=== PATIENT | female | born 1995 | race Caucasian/White ===

== ENCOUNTER 2020-07-07 15:07 | Inpatient (IN) | payer OTHER ==
[2020-07-07 15:14] VITALS: BMI 26.6
[2020-07-07] MEDS ORDERED: morphine CARPU-JECT 4 MG/1 ML DISP.SYRIN IM ONE (16:19)
[2020-07-07] MEDS ORDERED: KETOROLAC TROMETHAMINE 60 MG/2 ML VIAL IM ONE (16:19)
[2020-07-07] MEDS ORDERED: morphine SULFATE 4 MG/ML VIAL ONE (16:22)
[2020-07-07] MEDS ORDERED: KETOROLAC TROMETHAMINE 60 MG/2 ML VIAL ONE (16:22)
[2020-07-07] MEDS ORDERED: ACETAMINOPHEN 500 MG TABLET (FP) PO ONE (17:39)
[2020-07-07] MEDS ORDERED: CYCLOBENZAPRINE HCL 10 MG TABLET (FP) PO ONE (17:39)
[2020-07-07] MEDS ORDERED: ACETAMINOPHEN 500 MG TABLET (FP) ONE (17:42)
[2020-07-07] MEDS ORDERED: CYCLOBENZAPRINE HCL 10 MG TABLET (FP) ONE (17:42)
[2020-07-07] MEDS ORDERED: HYDROmorphone HCL CARPU-JECT 2 MG/1 ML DISP.SYRIN IVPB ONE (20:33)
[2020-07-07] MEDS ORDERED: HYDROmorphone HCl 2 MG/ML VIAL ONE (20:36)
[2020-07-07 20:48] LABS: BASO % 0.5 % (0-2.0); HEMOGLOBIN 12.4 GM/dL (10.7-15.3); LYMPH % 25.8 % (8-40); MCH 29.7 pg (25.7-33.7); MCHC 33.6 g/dl (32.0-36.0); MEAN CELL VOLUME 88.4 fl (80-96); MEAN PLT VOLUME 10.4 fl (7.5-11.1); NEUT % 65.7 % (42.8-82.8); PLATELET COUNT 269 K/MM3 (134-434); RBC 4.18 M/mm3 (3.60-5.2); RDW 13.5 % (11.6-15.6); WHITE BLOOD COUNT 10.8 K/mm3 (4.0-10.0)
[2020-07-07 21:05] LABS: POTASSIUM 4.8 mmol/L (3.5-5.1)
[2020-07-07 21:07] LABS: ALBUMIN 3.8 g/dl (3.4-5.0); BLOOD UREA NITROGEN 7.6 mg/dL (7-18)
[2020-07-07 21:08] LABS: PH,URINE 6.5 (5.0-8.0); URINE APPEARANCE CLOUDY; URINE BILIRUBIN NEGATIVE (NEGATIVE); URINE COLOR YELLOW; URINE GLUCOSE (UA) NEGATIVE (NEGATIVE); URINE KETONE 3+ (NEGATIVE); URINE LEUK ESTERASE NEGATIVE (NEGATIVE); URINE NITRITE NEGATIVE (NEGATIVE); URINE PROTEIN NEGATIVE (NEGATIVE); URINE UROBILINOGEN 0.2 mg/dL (0.2-1.0)
[2020-07-07 21:11] LABS: CREATININE 0.5 mg/dL (0.55-1.3)
[2020-07-07 21:12] LABS: BILIRUBIN,TOTAL 0.3 mg/dL (0.2-1); TOT PROT 7.1 g/dl (6.4-8.2)
[2020-07-08] MEDS ORDERED: morphine SULFATE 4 MG/ML VIAL IVPUSH PRN (01:42)
[2020-07-08] MEDS ORDERED: MORPHINE SULFATE 2 MG/ML VIAL IVPUSH PRN ×2 (01:42→12:50)
[2020-07-08] MEDS ORDERED: CYCLOBENZAPRINE HCL 10 MG TABLET (FP) PO PRN (01:43)
[2020-07-08] MEDS ORDERED: GABAPENTIN 300 MG CAPSULE PO ONE (01:44)
[2020-07-08] MEDS ORDERED: ACETAMINOPHEN 325 MG TABLET (FP) PO PRN (01:45)
[2020-07-08] MEDS ORDERED: MELATONIN 5 MG TABLETS PO ONE (01:45)
[2020-07-08] MEDS ORDERED: KETOROLAC TROMETHAMINE 30 MG/1 ML VIAL IVPUSH PRN (01:45)
[2020-07-08] MEDS ORDERED: GABAPENTIN 100 MG CAPSULE ONE (02:23)
[2020-07-08] MEDS ORDERED: KETOROLAC TROMETHAMINE 30 MG/1 ML VIAL ONE (03:24)
[2020-07-08] MEDS ORDERED: CYCLOBENZAPRINE HCL 10 MG TABLET (FP) ONE (03:24)
[2020-07-08] MEDS ORDERED: KETOROLAC TROMETHAMINE 15 MG/ML VIAL IVPUSH PRN (03:28)
[2020-07-08 07:50] LABS: HEMATOCRIT 37.3 % (32.4-45.2); HEMOGLOBIN 12.6 GM/dL (10.7-15.3); MCHC 33.7 g/dl (32.0-36.0); MEAN CELL VOLUME 88.9 fl (80-96); MEAN PLT VOLUME 10.3 fl (7.5-11.1); PLATELET COUNT 259 K/MM3 (134-434); RDW 13.4 % (11.6-15.6); WHITE BLOOD COUNT 8.6 K/mm3 (4.0-10.0)
[2020-07-08 07:57] LABS: POTASSIUM 3.8 mmol/L (3.5-5.1)
[2020-07-08 08:04] LABS: CALCIUM 8.8 mg/dL (8.5-10.1)
[2020-07-08 08:05] LABS: BLOOD UREA NITROGEN 16.5 mg/dL (7-18)
[2020-07-08 08:08] LABS: CREATININE 0.7 mg/dL (0.55-1.3)
[2020-07-08] MEDS ORDERED: NICOTINE 14 MG/24 HOURS TOPICAL PATCH TD SCH (10:00)
[2020-07-08] MEDS ORDERED: ENOXAPARIN NA (PORCINE) 40 MG/0.4 ML DISP.SYRIN SQ SCH (10:00)
[2020-07-08] MEDS ORDERED: ENOXAPARIN NA (PORCINE) 40 MG/0.4 ML DISP.SYRIN SQ ONE (10:27)
[2020-07-08] MEDS ORDERED: ACETAMINOPHEN 1000 MG/100 ML VIAL (NON FORMULARY) IVPB PRN (12:50)
[2020-07-08] MEDS ORDERED: GABAPENTIN 300 MG CAPSULE PO SCH ×3 (14:00→22:00)
[2020-07-08] MEDS ORDERED: ACETAMINOPHEN INJECTION 100 ML IVPB ONE (17:23)
[2020-07-08 19:03] VITALS: BP 115/81; PULSE 96; TEMP 98
[2020-07-08] MEDS ORDERED: PRAMIPEXOLE DIHYDROCHLORIDE 0.25 MG TABLET PO SCH (20:00)
[2020-07-09] MEDS ORDERED: GABAPENTIN 400 MG CAPSULE PO SCH (04:14)
== END 2020-07-08 20:30 | disposition home or self-care (01) | DRG 552 ==
LOC: JER 15:07 → JERFT 15:07 → JERBED 20:33
PROVIDERS: ADMIT Hospitalist; ATTEND Internal Medicine
DX: M51.17 Intervertebral disc disorders with radiculopathy, lumbosacral region (principal); M54.2 Cervicalgia; N83.209 Unspecified ovarian cyst, unspecified side; G43.909 Migraine, unspecified, not intractable, without status migrainosus; G25.81 Restless legs syndrome
CPT/HCPCS: 36415; 71046-TC-FY; 72125-TC; 72131-TC; 80048; 80053; 81003; 84703; 85025; 85027; 93005; 93010; 99285-25; C9803; J0131; U0003

== ENCOUNTER 2021-04-22 22:20 | Observation (INO) | payer SELFPAY ==
[2021-04-22] MEDS ORDERED: SODIUM CHLORIDE 0.9% 500 ML INFUS.BAG IV ONE (23:09)
[2021-04-22] MEDS ORDERED: FAMOTIDINE 20 MG/50 ML IVPB 20 MG/50 ML MG IVPB ONE (23:09)
[2021-04-22] MEDS ORDERED: ONDANSETRON 4 MG/2 ML VIAL IVPUSH ONE (23:09)
[2021-04-22] MEDS ORDERED: ACETAMINOPHEN 1000 MG/100 ML VIAL IVPB ONE (23:09)
[2021-04-22] MEDS ORDERED: ACETAMINOPHEN INJECTION 100 ML IVPB ONE (23:30)
[2021-04-22] MEDS ORDERED: ONDANSETRON 4 MG/2 ML VIAL ONE (23:30)
[2021-04-22 23:41] LABS: BASO % 0.7 % (0-2.0); EOS % 0.6 % (0-4.5); HEMATOCRIT 42.2 % (32.4-45.2); HEMOGLOBIN 14.2 GM/dL (10.7-15.3); LYMPH % 1.9 % (8-40); MCH 29.7 pg (25.7-33.7); MCHC 33.6 g/dl (32.0-36.0); MEAN CELL VOLUME 88.3 fl (80-96); MEAN PLT VOLUME 9.1 fl (7.5-11.1); MONO % 1.7 % (3.8-10.2); NEUT % 95.1 % (42.8-82.8); PLATELET COUNT 290 10^3/uL (134-434); RBC 4.77 M/mm3 (3.60-5.2); RDW 13.4 % (11.6-15.6); WHITE BLOOD COUNT 16.4 K/mm3 (4.0-10.0)
[2021-04-22] MEDS ORDERED: FAMOTIDINE/PF 20 MG/2 ML VIAL ONE (23:44)
[2021-04-22] MEDS ORDERED: diazePAM CARPU-JECT 10 MG/2 ML DISP.SYRIN IVPUSH ONE (23:54)
[2021-04-22] MEDS ORDERED: KETOROLAC TROMETHAMINE 15 MG/ML VIAL IVPUSH ONE (23:54)
[2021-04-23 00:02] LABS: PH,URINE 5.5 (5.0-8.0); URINE APPEARANCE CLOUDY; URINE BILIRUBIN NEGATIVE (NEGATIVE); URINE COLOR YELLOW; URINE GLUCOSE (UA) NEGATIVE (NEGATIVE); URINE KETONE TRACE (NEGATIVE); URINE LEUK ESTERASE NEGATIVE (NEGATIVE); URINE NITRITE NEGATIVE (NEGATIVE); URINE PROTEIN NEGATIVE (NEGATIVE); URINE UROBILINOGEN 0.2 mg/dL (0.2-1.0)
[2021-04-23 00:09] LABS: ALBUMIN 3.7 g/dl (3.4-5.0); CALCIUM 8.9 mg/dL (8.5-10.1)
[2021-04-23 00:10] LABS: BLOOD UREA NITROGEN 16.6 mg/dL (7-18); MAGNESIUM 1.8 mg/dL (1.8-2.4)
[2021-04-23 00:12] LABS: CREATININE 0.7 mg/dL (0.55-1.3)
[2021-04-23 00:14] LABS: BILIRUBIN,TOTAL 0.6 mg/dL (0.2-1); TOT PROT 7.5 g/dl (6.4-8.2)
[2021-04-23] MEDS ORDERED: KETOROLAC TROMETHAMINE 30 MG/1 ML VIAL ONE ×2 (00:15→06:20)
[2021-04-23] MEDS ORDERED: diazePAM CARPU-JECT 10 MG/2 ML DISP.SYRIN ONE (00:58)
[2021-04-23 01:02] LABS: ANISOCYTOSIS 2+; MACROCYTOSIS 0; PLATELET ESTIMATE NORMAL; TOXIC GRANULATION 2+
[2021-04-23] MEDS ORDERED: DEXTROSE 5%-LACTATED RINGERS 1,000 ML IV SCH (01:45)
[2021-04-23] MEDS ORDERED: oxyCODONE HCL 5 MG TABLET PO ONE ×2 (02:19→02:53)
[2021-04-23] MEDS ORDERED: oxyCODONE HCL 5 MG TABLET ONE ×2 (02:24→02:55)
[2021-04-23] MEDS ORDERED: ACETAMINOPHEN 1000 MG/100 ML VIAL IVPB PRN (05:08)
[2021-04-23] MEDS ORDERED: KETOROLAC TROMETHAMINE 15 MG/ML VIAL IVPUSH PRN (05:09)
[2021-04-23] MEDS ORDERED: SODIUM CHLORIDE 1,000 ML IV SCH (05:15)
[2021-04-23] MEDS ORDERED: ONDANSETRON 4 MG/2 ML VIAL IVPUSH PRN (05:43)
[2021-04-23 07:16] LABS: HEMATOCRIT 37.5 % (32.4-45.2); HEMOGLOBIN 12.9 GM/dL (10.7-15.3); MCH 30.9 pg (25.7-33.7); MCHC 34.3 g/dl (32.0-36.0); PLATELET COUNT 265 10^3/uL (134-434); RBC 4.17 M/mm3 (3.60-5.2); RDW 13.5 % (11.6-15.6); WHITE BLOOD COUNT 10.9 K/mm3 (4.0-10.0)
[2021-04-23 07:30] LABS: BLOOD UREA NITROGEN 16.4 mg/dL (7-18); CALCIUM 8.1 mg/dL (8.5-10.1); MAGNESIUM 1.9 mg/dL (1.8-2.4)
[2021-04-23 07:33] LABS: CREATININE 0.6 mg/dL (0.55-1.3)
[2021-04-23 07:35] LABS: BILIRUBIN,TOTAL 0.3 mg/dL (0.2-1); TOT PROT 6.2 g/dl (6.4-8.2)
[2021-04-23] MEDS ORDERED: LIDOCAINE 5% TOPICAL PATCH ONE (08:41)
[2021-04-23 09:02] LABS: ANISOCYTOSIS 0; HELMET CELLS 0; HOWELL-JOLLY BODIES 0; MACROCYTOSIS 0; OVALOCYTE 0; PLATELET ESTIMATE NORMAL; ROULEAU 0; SICKELED CELLS 0; TARGET CELLS 0; TEAR DROP CELLS 0; TOXIC GRANULATION 0
[2021-04-23] MEDS ORDERED: LIDOCAINE 5% TOPICAL PATCH TP SCH (10:00)
[2021-04-23] MEDS ORDERED: ENOXAPARIN NA (PORCINE) 40 MG/0.4 ML DISP.SYRIN SQ SCH (10:00)
[2021-04-23] MEDS ORDERED: ACETAMINOPHEN INJECTION 100 ML IVPB ONE ×2 (11:01→15:23)
[2021-04-23 14:42] VITALS: BP 109/76; PULSE 78; TEMP 98.4
[2021-04-23] MEDS ORDERED: ACETAMINOPHEN 1000 MG/100 ML VIAL IVPB ONE (15:07)
[2021-04-23] MEDS ORDERED: LIDOCAINE PATCH REMOVAL MC SCH (22:00)
== END 2021-04-23 17:35 | disposition home or self-care (01) ==
LOC: JER 22:20 → JERBED 04-23 04:11 → INTOOBSV 04-23 04:11 → UNDOADMOB 04-23 04:11 → JERBED 04-23 14:29
PROC: 3E033NZ Introduction of Analgesics, Hypnotics, Sedatives into Peripheral Vein, Percutaneous Approach (ICD-10-PCS; principal; 2021-04-23)
PROC: 3E0337Z Introduction of Electrolytic and Water Balance Substance into Peripheral Vein, Percutaneous Approach (ICD-10-PCS; 2021-04-23)
PROC: 3E033GC Introduction of Other Therapeutic Substance into Peripheral Vein, Percutaneous Approach (ICD-10-PCS; 2021-04-23)
PROC: 3E0333Z Introduction of Anti-inflammatory into Peripheral Vein, Percutaneous Approach (ICD-10-PCS; 2021-04-23)
DX: R19.7 Diarrhea, unspecified (principal); M54.59 Other low back pain; M54.30 Sciatica, unspecified side; R11.2 Nausea with vomiting, unspecified; R55 Syncope and collapse; M51.86 Other intervertebral disc disorders, lumbar region; J45.909 Unspecified asthma, uncomplicated; R68.83 Chills (without fever); R63.30 Feeding difficulties, unspecified; F17.210 Nicotine dependence, cigarettes, uncomplicated; Z29.9 Encounter for prophylactic measures, unspecified
CPT/HCPCS: 36415; 72100-TC-FY; 80053; 81003; 83690; 83735; 84100; 84703; 85025; 87077; 87086; 87804; 87807; 93005; 93010; 96361; 96365; 96375; 96376; 99285-25; C9803; G0378; J0131; U0003; U0005

== ENCOUNTER 2021-11-01 15:47 | Emergency (ER) | payer OTHER ==
[2021-11-01 16:01] VITALS: BP 121/65; PULSE 89; TEMP 98.6; BMI 21.6
[2021-11-01] MEDS ORDERED: CYCLOBENZAPRINE HCL 10 MG TABLET (FP) PO ONE (17:25)
[2021-11-01] MEDS ORDERED: LIDOCAINE 5% TOPICAL PATCH TP ONE (17:25)
[2021-11-01] MEDS ORDERED: KETOROLAC TROMETHAMINE 30 MG/1 ML VIAL IM ONE (17:25)
[2021-11-01] MEDS ORDERED: CYCLOBENZAPRINE HCL 10 MG TABLET (FP) ONE (17:39)
[2021-11-01] MEDS ORDERED: LIDOCAINE 5% TOPICAL PATCH ONE (17:39)
[2021-11-01] MEDS ORDERED: KETOROLAC TROMETHAMINE 30 MG/1 ML VIAL ONE (17:39)
[2021-11-02] MEDS ORDERED: LIDOCAINE PATCH REMOVAL MC SCH (06:00)
== END 2021-11-01 19:57 | disposition left against medical advice (07) ==
LOC: JERFT 15:47 → JER 15:47 → JERFT 19:57
PROC: 3E0233Z Introduction of Anti-inflammatory into Muscle, Percutaneous Approach (ICD-10-PCS; principal; 2021-11-01)
DX: M54.41 Lumbago with sciatica, right side (principal); W10.9XXA Fall (on) (from) unspecified stairs and steps, initial encounter
CPT/HCPCS: 96372; 99284-25

== ENCOUNTER 2022-01-04 10:40 | Emergency (ER) | payer OTHER ==
[2022-01-04 10:47] VITALS: RESP 18; TEMP 98.1; BMI 26.6
[2022-01-04] MEDS ORDERED: SODIUM CHLORIDE 1,000 ML IV STA ×2 (11:25→14:16)
[2022-01-04] MEDS ORDERED: ACETAMINOPHEN 1000 MG/100 ML BAG IVPB ONE (11:27)
[2022-01-04] MEDS ORDERED: ONDANSETRON 4 MG/2 ML VIAL IVPUSH ONE (11:29)
[2022-01-04 12:12] LABS: PH,URINE 5.5 (5.0-8.0); URINE APPEARANCE CLOUDY; URINE BILIRUBIN NEGATIVE (NEGATIVE); URINE COLOR YELLOW; URINE GLUCOSE (UA) NEGATIVE (NEGATIVE); URINE KETONE TRACE (NEGATIVE); URINE LEUK ESTERASE NEGATIVE (NEGATIVE); URINE NITRITE NEGATIVE (NEGATIVE); URINE PROTEIN TRACE (NEGATIVE); URINE UROBILINOGEN 0.2 mg/dL (0.2-1.0)
[2022-01-04 12:23] LABS: HCG,QUALITATIVE URINE Negative
[2022-01-04] MEDS ORDERED: ONDANSETRON 4 MG/2 ML VIAL ONE ×2 (12:26→12:32)
[2022-01-04] MEDS ORDERED: ACETAMINOPHEN INJECTION 100 ML IVPB ONE (12:26)
[2022-01-04] MEDS ORDERED: KETOROLAC TROMETHAMINE 30 MG/1 ML VIAL IVPUSH ONE (12:41)
[2022-01-04] MEDS ORDERED: KETOROLAC TROMETHAMINE 30 MG/1 ML VIAL ONE (12:42)
[2022-01-04 13:35] LABS: BASO % 0.7 % (0-2.0); EOS % 2.2 % (0-4.5); HEMATOCRIT 39.3 % (32.4-45.2); HEMOGLOBIN 13.4 GM/dL (10.7-15.3); LYMPH % 26.1 % (8-40); MCH 30.5 pg (25.7-33.7); MEAN CELL VOLUME 89.8 fl (80-96); MEAN PLT VOLUME 8.9 fl (7.5-11.1); PLATELET COUNT 352 10^3/uL (134-434); RBC 4.38 M/mm3 (3.60-5.2); RDW 13.8 % (11.6-15.6); WHITE BLOOD COUNT 9.9 K/mm3 (4.0-10.0)
[2022-01-04 13:56] LABS: CALCIUM 9.3 mg/dL (8.5-10.1)
[2022-01-04 13:57] LABS: BLOOD UREA NITROGEN 10.7 mg/dL (7-18)
[2022-01-04 14:00] LABS: CREATININE 0.7 mg/dL (0.55-1.3)
[2022-01-04 14:01] LABS: BILIRUBIN,TOTAL 0.3 mg/dL (0.2-1); TOT PROT 7.6 g/dl (6.4-8.2)
[2022-01-04] MEDS ORDERED: morphine CARPU-JECT 2 MG/1 ML DISP.SYRIN IVPUSH ONE (14:13)
[2022-01-04 17:56] VITALS: BP 105/58; PULSE 73
== END 2022-01-04 17:45 | disposition home or self-care (01) ==
LOC: JER 10:40
PROC: 3E0333Z Introduction of Anti-inflammatory into Peripheral Vein, Percutaneous Approach (ICD-10-PCS; principal; 2022-01-04)
PROC: 3E0333Z Introduction of Anti-inflammatory into Peripheral Vein, Percutaneous Approach (ICD-10-PCS; 2022-01-04)
PROC: 3E033NZ Introduction of Analgesics, Hypnotics, Sedatives into Peripheral Vein, Percutaneous Approach (ICD-10-PCS; 2022-01-04)
PROC: 3E033GC Introduction of Other Therapeutic Substance into Peripheral Vein, Percutaneous Approach (ICD-10-PCS; 2022-01-04)
PROC: 3E0337Z Introduction of Electrolytic and Water Balance Substance into Peripheral Vein, Percutaneous Approach (ICD-10-PCS; 2022-01-04)
PROC: 3E0333Z Introduction of Anti-inflammatory into Peripheral Vein, Percutaneous Approach (ICD-10-PCS; 2022-01-04)
DX: N83.201 Unspecified ovarian cyst, right side (principal)
CPT/HCPCS: 36415; 74176-TC; 76830-TC; 80053; 81003; 84703; 85025; 87086; 99285-25

== ENCOUNTER 2022-04-29 16:51 | Emergency (ER) | payer OTHER ==
[2022-04-29 16:58] VITALS: BP 115/78; PULSE 116; RESP 18; TEMP 97.6; BMI 26.6
[2022-04-29] MEDS ORDERED: ACETAMINOPHEN 1000 MG/100 ML BAG IVPB ONE ×2 (18:02→22:05)
[2022-04-29] MEDS ORDERED: ONDANSETRON 4 MG/2 ML VIAL IVPUSH ONE (18:02)
[2022-04-29] MEDS ORDERED: SODIUM CHLORIDE 0.9% 500 ML INFUS.BAG IV ONE (18:02)
[2022-04-29] MEDS ORDERED: PANTOPRAZOLE SODIUM 40 MG VIAL IVPUSH ONE (18:03)
[2022-04-29] MEDS ORDERED: ACETAMINOPHEN INJECTION 100 ML IVPB ONE (18:19)
[2022-04-29] MEDS ORDERED: ONDANSETRON 4 MG/2 ML VIAL ONE (18:19)
[2022-04-29] MEDS ORDERED: PANTOPRAZOLE SODIUM 40 MG VIAL ONE (18:20)
[2022-04-29 19:11] LABS: BASO % 0.6 % (0-2.0); EOS % 0.7 % (0-4.5); HEMATOCRIT 41.7 % (32.4-45.2); HEMOGLOBIN 13.6 GM/dL (10.7-15.3); LYMPH % 12.5 % (8-40); MCHC 32.6 g/dl (32.0-36.0); MEAN PLT VOLUME 9.3 fl (7.5-11.1); MONO % 4.5 % (3.8-10.2); NEUT % 81.7 % (42.8-82.8); PLATELET COUNT 407 10^3/uL (134-434); RBC 4.69 M/mm3 (3.60-5.2); RDW 13.8 % (11.6-15.6)
[2022-04-29 19:14] LABS: INR 1.07 (0.83-1.09); PROTHROMBIN TIME (PATIENT) 12.3 SEC (9.7-13.0)
[2022-04-29 19:16] LABS: ACTIVATED PTT 30.4 SECONDS (25.2-36.5)
[2022-04-29] MEDS ORDERED: morphine CARPU-JECT 4 MG/1 ML DISP.SYRIN IVPUSH ONE (20:23)
[2022-04-29 20:26] LABS: ALBUMIN 4.1 g/dl (3.4-5.0); BILIRUBIN,TOTAL 0.2 mg/dL (0.2-1); BLOOD UREA NITROGEN 7.2 mg/dL (7-18); CALCIUM 9.8 mg/dL (8.5-10.1); CREATININE 0.8 mg/dL (0.55-1.3); TOT PROT 8.4 g/dl (6.4-8.2)
[2022-04-29] MEDS ORDERED: morphine SULFATE 4 MG/ML VIAL ONE (20:26)
[2022-04-29 21:36] LABS: EPI CELLS 6 /uL (0-25.1); HYALINE CASTS 0 /uL (0-3.1); PH,URINE 5.5 (5.0-8.0); URINE APPEARANCE CLEAR; URINE BACTERIA 110 /uL (0-1359); URINE BILIRUBIN NEGATIVE (NEGATIVE); URINE COLOR YELLOW; URINE GLUCOSE (UA) NEGATIVE (NEGATIVE); URINE KETONE NEGATIVE (NEGATIVE); URINE LEUK ESTERASE NEGATIVE (NEGATIVE); URINE NITRITE NEGATIVE (NEGATIVE); URINE PROTEIN NEGATIVE (NEGATIVE); URINE RBC 4 /uL (0-23.9); URINE UROBILINOGEN 0.2 mg/dL (0.2-1.0); URINE WBC 5 /uL (0-25.8)
[2022-04-29] MEDS ORDERED: AMOX TR/POT CLAV 875MG/125MG TABLETS (FP) PO ONE (21:56)
[2022-04-29] MEDS ORDERED: SIMETHICONE 80 MG TAB.CHEW (FP) PO ONE (22:07)
[2022-04-29] MEDS ORDERED: ACETAMINOPHEN 325 MG TABLET (FP) PO ONE (22:14)
[2022-04-29] MEDS ORDERED: AMOX TR/POT CLAV 875MG/125MG TABLETS (FP) ONE (22:17)
[2022-04-29] MEDS ORDERED: ACETAMINOPHEN 325 MG TABLET (FP) ONE (22:18)
[2022-04-29] MEDS ORDERED: SIMETHICONE 80 MG TAB.CHEW (FP) ONE (22:18)
== END 2022-04-29 23:25 | disposition home or self-care (01) ==
LOC: JER 16:51
PROC: 3E0333Z Introduction of Anti-inflammatory into Peripheral Vein, Percutaneous Approach (ICD-10-PCS; principal; 2022-04-29)
PROC: 3E0333Z Introduction of Anti-inflammatory into Peripheral Vein, Percutaneous Approach (ICD-10-PCS; 2022-04-29)
PROC: 3E033NZ Introduction of Analgesics, Hypnotics, Sedatives into Peripheral Vein, Percutaneous Approach (ICD-10-PCS; 2022-04-29)
PROC: 3E033GC Introduction of Other Therapeutic Substance into Peripheral Vein, Percutaneous Approach (ICD-10-PCS; 2022-04-29)
PROC: 3E033GC Introduction of Other Therapeutic Substance into Peripheral Vein, Percutaneous Approach (ICD-10-PCS; 2022-04-29)
DX: K51.90 Ulcerative colitis, unspecified, without complications (principal)
CPT/HCPCS: 0241U-QW; 36415; 74018-TC-FY; 74176-TC; 80053; 81003; 82272; 83690; 84703; 85025; 85610; 85730; 86850; 86900; 86901; 87086; 99285-25

== ENCOUNTER 2022-06-15 15:41 | Emergency (ER) | payer OTHER ==
[2022-06-15 15:55] VITALS: BP 113/56; PULSE 95; RESP 18; TEMP 98.7; BMI 26.6
[2022-06-15] MEDS ORDERED: KETOROLAC TROMETHAMINE 30 MG/1 ML VIAL IVPUSH ONE (16:31)
[2022-06-15] MEDS ORDERED: FAMOTIDINE 20 MG/50 ML IVPB 20 MG/50 ML MG IVPB ONE ×2 (16:32→16:41)
[2022-06-15] MEDS ORDERED: METOCLOPRAMIDE HCL INJECTION 10 MG/2 ML VIAL IVPUSH ONE (16:35)
[2022-06-15] MEDS ORDERED: SODIUM CHLORIDE 0.9% 500 ML INFUS.BAG IV ONE (16:36)
[2022-06-15] MEDS ORDERED: METOCLOPRAMIDE HCL INJECTION 10 MG/2 ML VIAL ONE (16:41)
[2022-06-15] MEDS ORDERED: KETOROLAC TROMETHAMINE 30 MG/1 ML VIAL ONE (16:41)
[2022-06-15 17:15] LABS: BASO % 0.3 % (0-2.0); EOS % 1.2 % (0-4.5); HEMATOCRIT 34.1 % (32.4-45.2); HEMOGLOBIN 11.6 GM/dL (10.7-15.3); LYMPH % 15.1 % (8-40); MCH 29.4 pg (25.7-33.7); MCHC 33.9 g/dl (32.0-36.0); MEAN CELL VOLUME 86.7 fl (80-96); MEAN PLT VOLUME 8.5 fl (7.5-11.1); MONO % 7.4 % (3.8-10.2); PLATELET COUNT 398 10^3/uL (134-434); RBC 3.94 M/mm3 (3.60-5.2); RDW 13.5 % (11.6-15.6); WHITE BLOOD COUNT 23.7 K/mm3 (4.0-10.0)
[2022-06-15 17:28] LABS: CALCIUM 9.2 mg/dL (8.5-10.1)
[2022-06-15 17:29] LABS: ALBUMIN 3.6 g/dl (3.4-5.0); BLOOD UREA NITROGEN 5.6 mg/dL (7-18)
[2022-06-15 17:32] LABS: CREATININE 0.6 mg/dL (0.55-1.3)
[2022-06-15 17:33] LABS: BILIRUBIN,TOTAL 0.4 mg/dL (0.2-1); TOT PROT 7.4 g/dl (6.4-8.2)
[2022-06-15 17:57] LABS: ANISOCYTOSIS 1+; MACROCYTOSIS 0; TEAR DROP CELLS 1+
== END 2022-06-15 18:18 | disposition left against medical advice (07) ==
LOC: JER 15:41
PROC: 3E033GC Introduction of Other Therapeutic Substance into Peripheral Vein, Percutaneous Approach (ICD-10-PCS; principal; 2022-06-15)
PROC: 3E0333Z Introduction of Anti-inflammatory into Peripheral Vein, Percutaneous Approach (ICD-10-PCS; 2022-06-15)
PROC: 3E033GC Introduction of Other Therapeutic Substance into Peripheral Vein, Percutaneous Approach (ICD-10-PCS; 2022-06-15)
DX: R19.7 Diarrhea, unspecified (principal); R10.84 Generalized abdominal pain
CPT/HCPCS: 36415; 80053; 83690; 84703; 85025; 99284-25

== ENCOUNTER 2022-08-05 21:04 | Inpatient (IN) | payer OTHER ==
[2022-08-05 23:53] VITALS: BMI 26.2
[2022-08-06] MEDS ORDERED: NALOXONE HCL 0.4 MG/ML VIAL IM PRN (02:10)
[2022-08-06] MEDS ORDERED: DICYCLOMINE HCL 10 MG CAPSULE PO PRN (02:10)
[2022-08-06] MEDS ORDERED: MAG HYDROX/AL HYDROX/SIMETH 30 ML UNIT-DOSE CUP PO PRN (02:10)
[2022-08-06] MEDS ORDERED: BENZOCAINE/MENTHOL (CHLORASEPTIC ) LOZENGE MM PRN (02:10)
[2022-08-06] MEDS ORDERED: POLYETHYLENE GLYCOL (HEALTHYLAX) 3350 17 GM PACKET PO PRN (02:10)
[2022-08-06] MEDS ORDERED: guaiFENesin 600 MG TABLET.ER (FP) PO PRN (02:10)
[2022-08-06] MEDS ORDERED: LOPERAMIDE HCL 2 MG CAPSULE PO PRN (02:10)
[2022-08-06] MEDS ORDERED: BISMUTH SUBSALICYLATE 524 MG/30 ML PO PRN (02:10)
[2022-08-06] MEDS ORDERED: NALOXONE HCL (KLOXXADO) 8 MG SPRAY NS PRN (02:10)
[2022-08-06] MEDS ORDERED: BENZONATATE 200 MG CAPSULE PO PRN (02:10)
[2022-08-06] MEDS ORDERED: ONDANSETRON *ODT* 4 MG TABLET SL PRN (02:10)
[2022-08-06] MEDS: METHOCARBAMOL 500 MG TABLET PO PRN (05:04)
[2022-08-06] MEDS: hydrOXYzine PAMOATE 25 MG CAPSULE (FP) PO PRN ×2 (05:04→11:17)
[2022-08-06] MEDS: ACETAMINOPHEN 325 MG TABLET (FP) PO PRN (07:01)
[2022-08-06] MEDS: PRENATAL VITAMINS W/ FOLIC ACID TABLET (FP) PO SCH (10:07)
[2022-08-06] MEDS: NICOTINE 10 MG CARTRIDGE (INHALER) IH PRN (11:31)
[2022-08-06] MEDS ORDERED: QUEtiapine FUMARATE 50 MG TABLET PO ONE (13:57)
[2022-08-06] MEDS: QUEtiapine FUMARATE 50 MG TABLET PO PRN (17:07)
[2022-08-06] MEDS ORDERED: QUEtiapine FUMARATE 50 MG TABLET PO SCH (22:00)
[2022-08-06] MEDS: THIAMINE HCL 100 MG TABLET (FP) PO SCH (22:35)
[2022-08-06] MEDS: MELATONIN 5 MG TABLETS PO SCH (22:36)
[2022-08-07] MEDS: QUEtiapine FUMARATE 50 MG TABLET PO PRN (04:17)
[2022-08-07] MEDS: MAGNESIUM HYDROX 2400MG/30ML ORAL SUSPENSION 30 ML CUP PO PRN (04:32)
[2022-08-07] MEDS: IBUPROFEN 600 MG TABLET (FP) PO PRN ×2 (04:48→11:46)
[2022-08-07] MEDS: METHOCARBAMOL 500 MG TABLET PO PRN ×2 (06:19→17:51)
[2022-08-07] MEDS: hydrOXYzine PAMOATE 25 MG CAPSULE (FP) PO PRN ×3 (06:19→21:08)
[2022-08-07] MEDS: ACETAMINOPHEN 325 MG TABLET (FP) PO PRN (08:18)
[2022-08-07] MEDS: PRENATAL VITAMINS W/ FOLIC ACID TABLET (FP) PO SCH (09:42)
[2022-08-07] MEDS: NICOTINE 10 MG CARTRIDGE (INHALER) IH PRN ×3 (09:44→20:03)
[2022-08-07] MEDS ORDERED: QUEtiapine FUMARATE 25 MG TABLET PO ONE (11:33)
[2022-08-07] MEDS: DIVALPROEX SODIUM 250 MG TABLET E.C. PO SCH ×2 (11:44→21:11)
[2022-08-07] MEDS: NICOTINE 21 MG/24 HOURS TOPICAL PATCH TD SCH (12:27)
[2022-08-07] MEDS: IBUPROFEN 400 MG TABLET (FP) PO PRN (17:51)
[2022-08-07] MEDS: THIAMINE HCL 100 MG TABLET (FP) PO SCH (21:07)
[2022-08-07] MEDS ORDERED: QUEtiapine FUMARATE 25 MG TABLET ONE (21:09)
[2022-08-07] MEDS: QUEtiapine FUMARATE 50 MG TABLET PO SCH (21:09)
[2022-08-07] MEDS: MELATONIN 5 MG TABLETS PO SCH (21:10)
[2022-08-08] MEDS: IBUPROFEN 600 MG TABLET (FP) PO PRN ×2 (02:23→15:50)
[2022-08-08] MEDS: METHOCARBAMOL 500 MG TABLET PO PRN ×4 (02:23→21:11)
[2022-08-08] MEDS: hydrOXYzine PAMOATE 25 MG CAPSULE (FP) PO PRN ×2 (06:24→17:35)
[2022-08-08] MEDS: NICOTINE 10 MG CARTRIDGE (INHALER) IH PRN ×3 (07:47→17:36)
[2022-08-08] MEDS: NICOTINE 21 MG/24 HOURS TOPICAL PATCH TD SCH (09:55)
[2022-08-08] MEDS: PRENATAL VITAMINS W/ FOLIC ACID TABLET (FP) PO SCH (09:55)
[2022-08-08] MEDS: DIVALPROEX SODIUM 250 MG TABLET E.C. PO SCH ×2 (09:55→21:11)
[2022-08-08] MEDS: IBUPROFEN 400 MG TABLET (FP) PO PRN (09:57)
[2022-08-08] MEDS: LORATADINE 10 MG TABLET PO SCH (14:30)
[2022-08-08] MEDS: LIDOCAINE 5% TOPICAL PATCH TP SCH (14:30)
[2022-08-08] MEDS: MAGNESIUM HYDROX 2400MG/30ML ORAL SUSPENSION 30 ML CUP PO PRN (15:50)
[2022-08-08] MEDS: LIDOCAINE PATCH REMOVAL MC SCH (21:09)
[2022-08-08] MEDS: MELATONIN 5 MG TABLETS PO SCH (21:10)
[2022-08-08] MEDS: QUEtiapine FUMARATE 50 MG TABLET PO SCH (21:11)
[2022-08-08] MEDS: THIAMINE HCL 100 MG TABLET (FP) PO SCH (21:11)
[2022-08-09] MEDS: DIVALPROEX SODIUM 250 MG TABLET E.C. PO SCH ×2 (10:15→21:04)
[2022-08-09] MEDS: LORATADINE 10 MG TABLET PO SCH (10:15)
[2022-08-09] MEDS: PRENATAL VITAMINS W/ FOLIC ACID TABLET (FP) PO SCH (10:15)
[2022-08-09] MEDS: LIDOCAINE 5% TOPICAL PATCH TP SCH (10:15)
[2022-08-09] MEDS: METHOCARBAMOL 500 MG TABLET PO PRN ×2 (10:16→16:38)
[2022-08-09] MEDS: NICOTINE 21 MG/24 HOURS TOPICAL PATCH TD SCH (10:17)
[2022-08-09] MEDS: NICOTINE 10 MG CARTRIDGE (INHALER) IH PRN ×2 (11:09→15:48)
[2022-08-09] MEDS: hydrOXYzine PAMOATE 25 MG CAPSULE (FP) PO PRN ×2 (11:10→21:04)
[2022-08-09] MEDS: ACETAMINOPHEN 325 MG TABLET (FP) PO PRN (14:36)
[2022-08-09] MEDS: MELATONIN 5 MG TABLETS PO SCH (21:04)
[2022-08-09] MEDS: IBUPROFEN 600 MG TABLET (FP) PO PRN (21:05)
[2022-08-09] MEDS: QUEtiapine FUMARATE 50 MG TABLET PO SCH (21:05)
[2022-08-09] MEDS: THIAMINE HCL 100 MG TABLET (FP) PO SCH (21:05)
[2022-08-09] MEDS: LIDOCAINE PATCH REMOVAL MC SCH (22:22)
[2022-08-10] MEDS: ACETAMINOPHEN 325 MG TABLET (FP) PO PRN (10:16)
[2022-08-10] MEDS: PRENATAL VITAMINS W/ FOLIC ACID TABLET (FP) PO SCH (10:16)
[2022-08-10] MEDS: METHOCARBAMOL 500 MG TABLET PO PRN ×2 (10:19→16:40)
[2022-08-10] MEDS: hydrOXYzine PAMOATE 25 MG CAPSULE (FP) PO PRN (10:19)
[2022-08-10] MEDS: LIDOCAINE 5% TOPICAL PATCH TP SCH (10:20)
[2022-08-10] MEDS: DIVALPROEX SODIUM 250 MG TABLET E.C. PO SCH ×2 (10:20→21:18)
[2022-08-10] MEDS: LORATADINE 10 MG TABLET PO SCH (10:20)
[2022-08-10] MEDS: NICOTINE 21 MG/24 HOURS TOPICAL PATCH TD SCH (10:21)
[2022-08-10] MEDS: NICOTINE 10 MG CARTRIDGE (INHALER) IH PRN ×2 (10:44→15:13)
[2022-08-10] MEDS ORDERED: PSEUDOEPHEDRINE HCL 30 MG TABLET PO SCH (11:00)
[2022-08-10] MEDS: ALBUTEROL SO4 HFA INHALER IH PRN (11:20)
[2022-08-10] MEDS ORDERED: PSEUDOEPHEDRINE HCL 30 MG TABLET PO PRN (11:36)
[2022-08-10] MEDS: QUEtiapine FUMARATE 25 MG TABLET PO SCH (13:18)
[2022-08-10] MEDS: hydrOXYzine PAMOATE 50 MG CAPSULE (FP) PO PRN (16:40)
[2022-08-10] MEDS: QUEtiapine FUMARATE 50 MG TABLET PO SCH (21:18)
[2022-08-10] MEDS: MELATONIN 5 MG TABLETS PO SCH (21:18)
[2022-08-10] MEDS: THIAMINE HCL 100 MG TABLET (FP) PO SCH (21:18)
[2022-08-10] MEDS: AMOXICILLIN 500 MG CAPSULE (FP) PO SCH (21:18)
[2022-08-10] MEDS: LIDOCAINE PATCH REMOVAL MC SCH (22:59)
[2022-08-11] MEDS: AMOXICILLIN 500 MG CAPSULE (FP) PO SCH ×3 (07:28→21:07)
[2022-08-11] MEDS: LORATADINE 10 MG TABLET PO SCH (10:33)
[2022-08-11] MEDS: PRENATAL VITAMINS W/ FOLIC ACID TABLET (FP) PO SCH (10:33)
[2022-08-11] MEDS: QUEtiapine FUMARATE 25 MG TABLET PO SCH (10:33)
[2022-08-11] MEDS: DIVALPROEX SODIUM 250 MG TABLET E.C. PO SCH ×2 (10:33→21:07)
[2022-08-11] MEDS: LIDOCAINE 5% TOPICAL PATCH TP SCH (10:33)
[2022-08-11] MEDS: NICOTINE 21 MG/24 HOURS TOPICAL PATCH TD SCH (10:34)
[2022-08-11] MEDS: ACETAMINOPHEN 325 MG TABLET (FP) PO PRN (10:36)
[2022-08-11] MEDS: NICOTINE 10 MG CARTRIDGE (INHALER) IH PRN ×3 (11:18→19:20)
[2022-08-11] MEDS: METHOCARBAMOL 500 MG TABLET PO PRN ×2 (13:06→21:08)
[2022-08-11] MEDS: hydrOXYzine PAMOATE 50 MG CAPSULE (FP) PO PRN ×2 (13:08→22:54)
[2022-08-11] MEDS: QUEtiapine FUMARATE 50 MG TABLET PO SCH (21:07)
[2022-08-11] MEDS: LIDOCAINE PATCH REMOVAL MC SCH (21:07)
[2022-08-11] MEDS: THIAMINE HCL 100 MG TABLET (FP) PO SCH (21:07)
[2022-08-11] MEDS: MELATONIN 5 MG TABLETS PO SCH (21:08)
[2022-08-12] MEDS: AMOXICILLIN 500 MG CAPSULE (FP) PO SCH ×3 (07:26→21:22)
[2022-08-12] MEDS: QUEtiapine FUMARATE 25 MG TABLET PO SCH (10:07)
[2022-08-12] MEDS: PRENATAL VITAMINS W/ FOLIC ACID TABLET (FP) PO SCH (10:07)
[2022-08-12] MEDS: DIVALPROEX SODIUM 250 MG TABLET E.C. PO SCH ×2 (10:08→21:23)
[2022-08-12] MEDS: LORATADINE 10 MG TABLET PO SCH (10:08)
[2022-08-12] MEDS: NICOTINE 21 MG/24 HOURS TOPICAL PATCH TD SCH (10:08)
[2022-08-12] MEDS: LIDOCAINE 5% TOPICAL PATCH TP SCH (10:09)
[2022-08-12] MEDS: hydrOXYzine PAMOATE 50 MG CAPSULE (FP) PO PRN ×2 (10:10→16:46)
[2022-08-12] MEDS: ACETAMINOPHEN 325 MG TABLET (FP) PO PRN (16:46)
[2022-08-12] MEDS: NICOTINE 10 MG CARTRIDGE (INHALER) IH PRN (20:00)
[2022-08-12] MEDS: IBUPROFEN 600 MG TABLET (FP) PO PRN (20:39)
[2022-08-12] MEDS: QUEtiapine FUMARATE 50 MG TABLET PO SCH (21:22)
[2022-08-12] MEDS: MELATONIN 5 MG TABLETS PO SCH (21:23)
[2022-08-12] MEDS: THIAMINE HCL 100 MG TABLET (FP) PO SCH (21:23)
[2022-08-12] MEDS: LIDOCAINE PATCH REMOVAL MC SCH (21:23)
[2022-08-13] MEDS: AMOXICILLIN 500 MG CAPSULE (FP) PO SCH ×3 (06:39→21:53)
[2022-08-13] MEDS: PRENATAL VITAMINS W/ FOLIC ACID TABLET (FP) PO SCH (10:16)
[2022-08-13] MEDS: LORATADINE 10 MG TABLET PO SCH (10:16)
[2022-08-13] MEDS: QUEtiapine FUMARATE 25 MG TABLET PO SCH (10:16)
[2022-08-13] MEDS: hydrOXYzine PAMOATE 50 MG CAPSULE (FP) PO PRN ×2 (10:16→21:55)
[2022-08-13] MEDS: DIVALPROEX SODIUM 250 MG TABLET E.C. PO SCH ×2 (10:16→21:53)
[2022-08-13] MEDS: LIDOCAINE 5% TOPICAL PATCH TP SCH (10:17)
[2022-08-13] MEDS: NICOTINE 21 MG/24 HOURS TOPICAL PATCH TD SCH (10:17)
[2022-08-13] MEDS: NICOTINE 10 MG CARTRIDGE (INHALER) IH PRN ×2 (11:17→21:54)
[2022-08-13] MEDS: QUEtiapine FUMARATE 50 MG TABLET PO SCH (21:53)
[2022-08-13] MEDS: LIDOCAINE PATCH REMOVAL MC SCH (21:54)
[2022-08-13] MEDS: MELATONIN 5 MG TABLETS PO SCH (21:54)
[2022-08-13] MEDS: THIAMINE HCL 100 MG TABLET (FP) PO SCH (21:54)
[2022-08-13] MEDS: ACETAMINOPHEN 325 MG TABLET (FP) PO PRN (21:55)
[2022-08-14] MEDS: AMOXICILLIN 500 MG CAPSULE (FP) PO SCH ×3 (06:47→21:47)
[2022-08-14] MEDS: DIVALPROEX SODIUM 250 MG TABLET E.C. PO SCH ×2 (10:05→21:47)
[2022-08-14] MEDS: LIDOCAINE 5% TOPICAL PATCH TP SCH (10:05)
[2022-08-14] MEDS: LORATADINE 10 MG TABLET PO SCH (10:05)
[2022-08-14] MEDS: NICOTINE 21 MG/24 HOURS TOPICAL PATCH TD SCH (10:05)
[2022-08-14] MEDS: QUEtiapine FUMARATE 25 MG TABLET PO SCH (10:05)
[2022-08-14] MEDS: PRENATAL VITAMINS W/ FOLIC ACID TABLET (FP) PO SCH (10:05)
[2022-08-14] MEDS: NICOTINE 10 MG CARTRIDGE (INHALER) IH PRN ×2 (13:54→17:55)
[2022-08-14] MEDS: hydrOXYzine PAMOATE 50 MG CAPSULE (FP) PO PRN (18:39)
[2022-08-14] MEDS: QUEtiapine FUMARATE 50 MG TABLET PO SCH (21:47)
[2022-08-14] MEDS: THIAMINE HCL 100 MG TABLET (FP) PO SCH (21:48)
[2022-08-14] MEDS: MELATONIN 5 MG TABLETS PO SCH (21:48)
[2022-08-14] MEDS: LIDOCAINE PATCH REMOVAL MC SCH (21:49)
[2022-08-15] MEDS: ACETAMINOPHEN 325 MG TABLET (FP) PO PRN ×2 (06:36→21:40)
[2022-08-15] MEDS: AMOXICILLIN 500 MG CAPSULE (FP) PO SCH ×3 (06:36→21:40)
[2022-08-15] MEDS: PRENATAL VITAMINS W/ FOLIC ACID TABLET (FP) PO SCH (10:09)
[2022-08-15] MEDS: QUEtiapine FUMARATE 25 MG TABLET PO SCH (10:11)
[2022-08-15] MEDS: LORATADINE 10 MG TABLET PO SCH (10:11)
[2022-08-15] MEDS: DIVALPROEX SODIUM 250 MG TABLET E.C. PO SCH ×2 (10:11→21:39)
[2022-08-15] MEDS: IBUPROFEN 600 MG TABLET (FP) PO PRN (10:11)
[2022-08-15] MEDS: LIDOCAINE 5% TOPICAL PATCH TP SCH (10:12)
[2022-08-15] MEDS: NICOTINE 21 MG/24 HOURS TOPICAL PATCH TD SCH (10:13)
[2022-08-15] MEDS: NICOTINE 10 MG CARTRIDGE (INHALER) IH PRN ×2 (10:14→21:51)
[2022-08-15] MEDS: METHOCARBAMOL 500 MG TABLET PO PRN ×2 (14:11→21:42)
[2022-08-15] MEDS: QUEtiapine FUMARATE 50 MG TABLET PO SCH (21:39)
[2022-08-15] MEDS: MELATONIN 5 MG TABLETS PO SCH (21:39)
[2022-08-15] MEDS: THIAMINE HCL 100 MG TABLET (FP) PO SCH (21:39)
[2022-08-15] MEDS: hydrOXYzine PAMOATE 50 MG CAPSULE (FP) PO PRN (21:40)
[2022-08-15] MEDS: LIDOCAINE PATCH REMOVAL MC SCH (21:48)
[2022-08-16] MEDS: AMOXICILLIN 500 MG CAPSULE (FP) PO SCH ×3 (07:16→21:20)
[2022-08-16] MEDS: DIVALPROEX SODIUM 250 MG TABLET E.C. PO SCH ×2 (10:05→21:20)
[2022-08-16] MEDS: LORATADINE 10 MG TABLET PO SCH (10:05)
[2022-08-16] MEDS: LIDOCAINE 5% TOPICAL PATCH TP SCH (10:05)
[2022-08-16] MEDS: PRENATAL VITAMINS W/ FOLIC ACID TABLET (FP) PO SCH (10:05)
[2022-08-16] MEDS: QUEtiapine FUMARATE 25 MG TABLET PO SCH (10:05)
[2022-08-16] MEDS: METHOCARBAMOL 500 MG TABLET PO PRN ×2 (10:06→21:20)
[2022-08-16] MEDS: hydrOXYzine PAMOATE 50 MG CAPSULE (FP) PO PRN ×2 (10:07→21:22)
[2022-08-16] MEDS: NICOTINE 21 MG/24 HOURS TOPICAL PATCH TD SCH (10:08)
[2022-08-16] MEDS: NICOTINE 10 MG CARTRIDGE (INHALER) IH PRN ×3 (14:13→23:53)
[2022-08-16] MEDS: IBUPROFEN 400 MG TABLET (FP) PO PRN (17:47)
[2022-08-16] MEDS: QUEtiapine FUMARATE 50 MG TABLET PO SCH (21:20)
[2022-08-16] MEDS: MELATONIN 5 MG TABLETS PO SCH (21:20)
[2022-08-16] MEDS: LIDOCAINE PATCH REMOVAL MC SCH (21:21)
[2022-08-16] MEDS: THIAMINE HCL 100 MG TABLET (FP) PO SCH (21:21)
[2022-08-16] MEDS: ACETAMINOPHEN 325 MG TABLET (FP) PO PRN (23:26)
[2022-08-17] MEDS: METHOCARBAMOL 500 MG TABLET PO PRN ×3 (06:26→21:13)
[2022-08-17] MEDS: AMOXICILLIN 500 MG CAPSULE (FP) PO SCH ×2 (06:26→14:23)
[2022-08-17] MEDS: NICOTINE 21 MG/24 HOURS TOPICAL PATCH TD SCH (09:28)
[2022-08-17] MEDS: PRENATAL VITAMINS W/ FOLIC ACID TABLET (FP) PO SCH (09:28)
[2022-08-17] MEDS: LIDOCAINE 5% TOPICAL PATCH TP SCH (09:28)
[2022-08-17] MEDS: QUEtiapine FUMARATE 25 MG TABLET PO SCH (09:29)
[2022-08-17] MEDS: DIVALPROEX SODIUM 250 MG TABLET E.C. PO SCH ×2 (09:30→21:13)
[2022-08-17] MEDS: LORATADINE 10 MG TABLET PO SCH (09:30)
[2022-08-17] MEDS: hydrOXYzine PAMOATE 50 MG CAPSULE (FP) PO PRN ×2 (09:32→21:13)
[2022-08-17] MEDS: NICOTINE 10 MG CARTRIDGE (INHALER) IH PRN ×3 (11:42→21:14)
[2022-08-17] MEDS: ACETAMINOPHEN 325 MG TABLET (FP) PO PRN (14:55)
[2022-08-17] MEDS: IBUPROFEN 600 MG TABLET (FP) PO PRN (18:05)
[2022-08-17] MEDS: QUEtiapine FUMARATE 50 MG TABLET PO SCH (21:13)
[2022-08-17] MEDS: MELATONIN 5 MG TABLETS PO SCH (21:13)
[2022-08-17] MEDS: THIAMINE HCL 100 MG TABLET (FP) PO SCH (21:14)
[2022-08-17] MEDS: LIDOCAINE PATCH REMOVAL MC SCH (22:53)
[2022-08-18] MEDS: PRENATAL VITAMINS W/ FOLIC ACID TABLET (FP) PO SCH (10:14)
[2022-08-18] MEDS: NICOTINE 21 MG/24 HOURS TOPICAL PATCH TD SCH (10:14)
[2022-08-18] MEDS: LIDOCAINE 5% TOPICAL PATCH TP SCH (10:15)
[2022-08-18] MEDS: LORATADINE 10 MG TABLET PO SCH (10:16)
[2022-08-18] MEDS: QUEtiapine FUMARATE 25 MG TABLET PO SCH (10:16)
[2022-08-18] MEDS: DIVALPROEX SODIUM 250 MG TABLET E.C. PO SCH ×2 (10:16→21:07)
[2022-08-18] MEDS: hydrOXYzine PAMOATE 50 MG CAPSULE (FP) PO PRN ×2 (10:18→21:07)
[2022-08-18] MEDS: METHOCARBAMOL 500 MG TABLET PO PRN ×2 (10:18→21:07)
[2022-08-18] MEDS: IBUPROFEN 600 MG TABLET (FP) PO PRN ×2 (14:15→21:09)
[2022-08-18] MEDS: ACETAMINOPHEN 325 MG TABLET (FP) PO PRN (17:39)
[2022-08-18] MEDS: NICOTINE 10 MG CARTRIDGE (INHALER) IH PRN (19:37)
[2022-08-18] MEDS: MELATONIN 5 MG TABLETS PO SCH (21:07)
[2022-08-18] MEDS: QUEtiapine FUMARATE 50 MG TABLET PO SCH (21:07)
[2022-08-18] MEDS: LIDOCAINE PATCH REMOVAL MC SCH (21:08)
[2022-08-18] MEDS: THIAMINE HCL 100 MG TABLET (FP) PO SCH (21:08)
[2022-08-18] MEDS: ALBUTEROL SO4 HFA INHALER IH PRN (21:42)
[2022-08-19] MEDS: IBUPROFEN 600 MG TABLET (FP) PO PRN (06:39)
[2022-08-19] MEDS: hydrOXYzine PAMOATE 50 MG CAPSULE (FP) PO PRN ×3 (06:40→21:41)
[2022-08-19] MEDS: METHOCARBAMOL 500 MG TABLET PO PRN ×3 (06:40→21:41)
[2022-08-19] MEDS: LORATADINE 10 MG TABLET PO SCH (09:54)
[2022-08-19] MEDS: PRENATAL VITAMINS W/ FOLIC ACID TABLET (FP) PO SCH (09:54)
[2022-08-19] MEDS: QUEtiapine FUMARATE 25 MG TABLET PO SCH (09:54)
[2022-08-19] MEDS: DIVALPROEX SODIUM 250 MG TABLET E.C. PO SCH ×2 (09:54→21:41)
[2022-08-19] MEDS: ACETAMINOPHEN 325 MG TABLET (FP) PO PRN (09:54)
[2022-08-19] MEDS: NICOTINE 21 MG/24 HOURS TOPICAL PATCH TD SCH (09:57)
[2022-08-19] MEDS: NICOTINE 10 MG CARTRIDGE (INHALER) IH PRN ×3 (09:57→23:22)
[2022-08-19] MEDS: LIDOCAINE 5% TOPICAL PATCH TP SCH (09:57)
[2022-08-19] MEDS: ALBUTEROL SO4 HFA INHALER IH PRN (09:58)
[2022-08-19] MEDS: MAGNESIUM HYDROX 2400MG/30ML ORAL SUSPENSION 30 ML CUP PO PRN (14:26)
[2022-08-19] MEDS: IBUPROFEN 400 MG TABLET (FP) PO PRN ×2 (15:47→21:41)
[2022-08-19] MEDS: QUEtiapine FUMARATE 50 MG TABLET PO SCH (21:41)
[2022-08-19] MEDS: THIAMINE HCL 100 MG TABLET (FP) PO SCH (21:41)
[2022-08-19] MEDS: MELATONIN 5 MG TABLETS PO SCH (21:43)
[2022-08-19] MEDS: LIDOCAINE PATCH REMOVAL MC SCH (21:43)
[2022-08-20] MEDS: METHOCARBAMOL 500 MG TABLET PO PRN ×3 (08:18→21:38)
[2022-08-20] MEDS: hydrOXYzine PAMOATE 50 MG CAPSULE (FP) PO PRN ×3 (08:18→21:38)
[2022-08-20] MEDS: DIVALPROEX SODIUM 250 MG TABLET E.C. PO SCH ×2 (10:28→21:38)
[2022-08-20] MEDS: LORATADINE 10 MG TABLET PO SCH (10:28)
[2022-08-20] MEDS: PRENATAL VITAMINS W/ FOLIC ACID TABLET (FP) PO SCH (10:28)
[2022-08-20] MEDS: QUEtiapine FUMARATE 25 MG TABLET PO SCH (10:28)
[2022-08-20] MEDS: LIDOCAINE 5% TOPICAL PATCH TP SCH (10:28)
[2022-08-20] MEDS: NICOTINE 21 MG/24 HOURS TOPICAL PATCH TD SCH (10:28)
[2022-08-20] MEDS: ACETAMINOPHEN 325 MG TABLET (FP) PO PRN ×2 (12:56→21:40)
[2022-08-20] MEDS: THIAMINE HCL 100 MG TABLET (FP) PO SCH (21:38)
[2022-08-20] MEDS: QUEtiapine FUMARATE 50 MG TABLET PO SCH (21:38)
[2022-08-20] MEDS: MELATONIN 5 MG TABLETS PO SCH (21:39)
[2022-08-20] MEDS: LIDOCAINE PATCH REMOVAL MC SCH (21:39)
[2022-08-20] MEDS: NICOTINE 10 MG CARTRIDGE (INHALER) IH PRN (21:42)
[2022-08-21] MEDS: METHOCARBAMOL 500 MG TABLET PO PRN ×3 (06:42→21:31)
[2022-08-21] MEDS: hydrOXYzine PAMOATE 50 MG CAPSULE (FP) PO PRN ×3 (06:42→21:31)
[2022-08-21] MEDS: LORATADINE 10 MG TABLET PO SCH (11:38)
[2022-08-21] MEDS: QUEtiapine FUMARATE 25 MG TABLET PO SCH (11:38)
[2022-08-21] MEDS: DIVALPROEX SODIUM 250 MG TABLET E.C. PO SCH ×2 (11:38→21:31)
[2022-08-21] MEDS: PRENATAL VITAMINS W/ FOLIC ACID TABLET (FP) PO SCH (11:38)
[2022-08-21] MEDS: LIDOCAINE 5% TOPICAL PATCH TP SCH (11:39)
[2022-08-21] MEDS: NICOTINE 21 MG/24 HOURS TOPICAL PATCH TD SCH (11:40)
[2022-08-21] MEDS: NICOTINE 10 MG CARTRIDGE (INHALER) IH PRN ×2 (12:47→16:56)
[2022-08-21] MEDS: MELATONIN 5 MG TABLETS PO SCH (21:31)
[2022-08-21] MEDS: QUEtiapine FUMARATE 50 MG TABLET PO SCH (21:31)
[2022-08-21] MEDS: THIAMINE HCL 100 MG TABLET (FP) PO SCH (21:31)
[2022-08-21] MEDS: LIDOCAINE PATCH REMOVAL MC SCH (21:31)
[2022-08-21] MEDS: ACETAMINOPHEN 325 MG TABLET (FP) PO PRN (21:32)
[2022-08-22] MEDS: hydrOXYzine PAMOATE 50 MG CAPSULE (FP) PO PRN ×3 (06:10→21:33)
[2022-08-22] MEDS: METHOCARBAMOL 500 MG TABLET PO PRN ×3 (06:10→21:33)
[2022-08-22] MEDS: NICOTINE 21 MG/24 HOURS TOPICAL PATCH TD SCH (10:30)
[2022-08-22] MEDS: PRENATAL VITAMINS W/ FOLIC ACID TABLET (FP) PO SCH (10:30)
[2022-08-22] MEDS: DIVALPROEX SODIUM 250 MG TABLET E.C. PO SCH ×2 (10:31→21:33)
[2022-08-22] MEDS: LORATADINE 10 MG TABLET PO SCH (10:31)
[2022-08-22] MEDS: QUEtiapine FUMARATE 25 MG TABLET PO SCH (10:31)
[2022-08-22] MEDS: LIDOCAINE 5% TOPICAL PATCH TP SCH (10:33)
[2022-08-22] MEDS: ACETAMINOPHEN 325 MG TABLET (FP) PO PRN ×2 (14:11→21:34)
[2022-08-22] MEDS: SODIUM CHLORIDE NASAL SPRAY 44 ML BOTTLE NS PRN ×2 (16:21→21:32)
[2022-08-22] MEDS: NICOTINE POLACRILEX 4 MG GUM BUC PRN (18:58)
[2022-08-22] MEDS: MELATONIN 5 MG TABLETS PO SCH (21:33)
[2022-08-22] MEDS: QUEtiapine FUMARATE 50 MG TABLET PO SCH (21:33)
[2022-08-22] MEDS: THIAMINE HCL 100 MG TABLET (FP) PO SCH (21:33)
[2022-08-22] MEDS: LIDOCAINE PATCH REMOVAL MC SCH (21:33)
[2022-08-22] MEDS: NICOTINE 10 MG CARTRIDGE (INHALER) IH PRN (21:36)
[2022-08-23] MEDS: IBUPROFEN 600 MG TABLET (FP) PO PRN (00:51)
[2022-08-23] MEDS: METHOCARBAMOL 500 MG TABLET PO PRN ×3 (05:58→21:39)
[2022-08-23] MEDS: hydrOXYzine PAMOATE 50 MG CAPSULE (FP) PO PRN ×3 (05:58→21:39)
[2022-08-23] MEDS: NICOTINE POLACRILEX 4 MG GUM BUC PRN ×3 (05:59→17:25)
[2022-08-23] MEDS: SODIUM CHLORIDE NASAL SPRAY 44 ML BOTTLE NS PRN ×2 (05:59→11:52)
[2022-08-23] MEDS: LORATADINE 10 MG TABLET PO SCH (10:20)
[2022-08-23] MEDS: PRENATAL VITAMINS W/ FOLIC ACID TABLET (FP) PO SCH (10:21)
[2022-08-23] MEDS: QUEtiapine FUMARATE 25 MG TABLET PO SCH (10:21)
[2022-08-23] MEDS: NICOTINE 21 MG/24 HOURS TOPICAL PATCH TD SCH (10:21)
[2022-08-23] MEDS: DIVALPROEX SODIUM 250 MG TABLET E.C. PO SCH ×2 (10:21→21:39)
[2022-08-23] MEDS: LIDOCAINE 5% TOPICAL PATCH TP SCH (10:21)
[2022-08-23] MEDS: NICOTINE 10 MG CARTRIDGE (INHALER) IH PRN ×2 (12:35→20:46)
[2022-08-23] MEDS: THIAMINE HCL 100 MG TABLET (FP) PO SCH (21:39)
[2022-08-23] MEDS: QUEtiapine FUMARATE 50 MG TABLET PO SCH (21:39)
[2022-08-23] MEDS: ACETAMINOPHEN 325 MG TABLET (FP) PO PRN (21:39)
[2022-08-23] MEDS ORDERED: MELATONIN 5 MG TABLETS PO SCH (22:00)
[2022-08-23] MEDS: LIDOCAINE PATCH REMOVAL MC SCH (23:03)
[2022-08-24] MEDS: NICOTINE POLACRILEX 4 MG GUM BUC PRN ×2 (07:58→09:52)
[2022-08-24 08:00] VITALS: BP 114/69; PULSE 79; RESP 18; TEMP 98
[2022-08-24] MEDS: SODIUM CHLORIDE NASAL SPRAY 44 ML BOTTLE NS PRN (09:46)
[2022-08-24] MEDS: PRENATAL VITAMINS W/ FOLIC ACID TABLET (FP) PO SCH (09:46)
[2022-08-24] MEDS: IBUPROFEN 400 MG TABLET (FP) PO PRN (09:47)
[2022-08-24] MEDS: QUEtiapine FUMARATE 25 MG TABLET PO SCH (09:47)
[2022-08-24] MEDS: METHOCARBAMOL 500 MG TABLET PO PRN (09:47)
[2022-08-24] MEDS: LORATADINE 10 MG TABLET PO SCH (09:47)
[2022-08-24] MEDS: hydrOXYzine PAMOATE 50 MG CAPSULE (FP) PO PRN (09:47)
[2022-08-24] MEDS: DIVALPROEX SODIUM 250 MG TABLET E.C. PO SCH (09:47)
[2022-08-24] MEDS: NICOTINE 21 MG/24 HOURS TOPICAL PATCH TD SCH (09:48)
[2022-08-24] MEDS: LIDOCAINE 5% TOPICAL PATCH TP SCH (09:48)
[2022-08-24] MEDS: NICOTINE 10 MG CARTRIDGE (INHALER) IH PRN (09:50)
== END 2022-08-24 11:25 | disposition home or self-care (01) | DRG 772 ==
LOC: YASAS 21:04 → Y5N 08-06 04:46
PROVIDERS: ADMIT Allergy & Immunology; ATTEND Psychiatry & Neurology Pain Medicine
PROC: HZ42ZZZ Group Counseling for Substance Abuse Treatment, Cognitive-Behavioral (ICD-10-PCS; principal; 2022-08-06)
DX: F14.20 Cocaine dependence, uncomplicated (principal); F12.20 Cannabis dependence, uncomplicated; F17.210 Nicotine dependence, cigarettes, uncomplicated; F31.9 Bipolar disorder, unspecified; F19.282 Other psychoactive substance dependence with psychoactive substance-induced sleep disorder; F19.24 Other psychoactive substance dependence with psychoactive substance-induced mood disorder; J45.909 Unspecified asthma, uncomplicated; F41.0 Panic disorder [episodic paroxysmal anxiety]; R09.81 Nasal congestion; M54.40 Lumbago with sciatica, unspecified side; G89.29 Other chronic pain; Z62.810 Personal history of physical and sexual abuse in childhood; Z91.410 Personal history of adult physical and sexual abuse
CPT/HCPCS: 0241U-QW; 36415; 70450-TC; 71250-TC; 72125-TC; 72128-TC; 72131-TC; 74176-TC; 80053; 80307; 81025; 82803; 83605; 83735; 84703; 85025; 85610; 85730; 86850; 86900; 86901; 87811; 93005; 93010; C9803-CS; Q0162; U0003; U0005

== ENCOUNTER 2022-11-20 21:50 | Inpatient (IN) | payer OTHER ==
[2022-11-20 22:39] VITALS: BMI 31.6
[2022-11-20] MEDS ORDERED: guaiFENesin 600 MG TABLET.ER (FP) PO PRN (23:00)
[2022-11-20] MEDS ORDERED: LOPERAMIDE HCL 2 MG CAPSULE PO PRN (23:00)
[2022-11-20] MEDS ORDERED: IBUPROFEN 400 MG TABLET (FP) PO PRN (23:00)
[2022-11-20] MEDS ORDERED: NALOXONE HCL (KLOXXADO) 8 MG SPRAY NS PRN (23:00)
[2022-11-20] MEDS ORDERED: DICYCLOMINE HCL 10 MG CAPSULE PO PRN (23:00)
[2022-11-20] MEDS ORDERED: NALOXONE HCL 0.4 MG/ML VIAL IM PRN (23:00)
[2022-11-20] MEDS ORDERED: BENZONATATE 200 MG CAPSULE PO PRN (23:00)
[2022-11-20] MEDS ORDERED: BISMUTH SUBSALICYLATE 524 MG/30 ML PO PRN (23:00)
[2022-11-20] MEDS ORDERED: MAGNESIUM HYDROX 2400MG/30ML ORAL SUSPENSION 30 ML CUP PO PRN (23:00)
[2022-11-20] MEDS ORDERED: POLYETHYLENE GLYCOL (HEALTHYLAX) 3350 17 GM PACKET PO PRN (23:00)
[2022-11-20] MEDS ORDERED: ONDANSETRON *ODT* 4 MG TABLET SL PRN (23:00)
[2022-11-20] MEDS ORDERED: BENZOCAINE/MENTHOL (CHLORASEPTIC ) LOZENGE MM PRN (23:00)
[2022-11-21] MEDS: PRENATAL VITAMINS W/ FOLIC ACID TABLET (FP) PO SCH (10:09)
[2022-11-21] MEDS: NICOTINE 14 MG/24 HOURS TOPICAL PATCH TD SCH (10:09)
[2022-11-21] MEDS ORDERED: ALBUTEROL SO4 HFA INHALER IH PRN (10:59)
[2022-11-21 11:08] LABS: HEMATOCRIT 40.9 % (32.4-45.2); MCH 28.2 pg (25.7-33.7); MCHC 31.8 g/dl (32.0-36.0); MEAN CELL VOLUME 88.6 fl (80-96); MEAN PLT VOLUME 9.9 fl (7.5-11.1); PLATELET COUNT 379 10^3/uL (134-434); RBC 4.62 M/mm3 (3.60-5.2); RDW 13.4 % (11.6-15.6); WHITE BLOOD COUNT 13.4 K/mm3 (4.0-10.0)
[2022-11-21 11:12] LABS: POTASSIUM 4.4 mmol/L (3.5-5.1)
[2022-11-21 11:15] LABS: CALCIUM 9.6 mg/dL (8.5-10.1)
[2022-11-21 11:16] LABS: ALBUMIN 3.4 g/dl (3.4-5.0); BLOOD UREA NITROGEN 10.8 mg/dL (7-18)
[2022-11-21 11:19] LABS: CREATININE 0.7 mg/dL (0.55-1.3)
[2022-11-21 11:20] LABS: BILIRUBIN,TOTAL 0.4 mg/dL (0.2-1)
[2022-11-21] MEDS: diazePAM 5 MG TABLET PO SCH ×3 (11:51→22:14)
[2022-11-21] MEDS: NICOTINE POLACRILEX 2 MG GUM BUC PRN ×2 (11:53→17:17)
[2022-11-21] MEDS: hydrOXYzine PAMOATE 25 MG CAPSULE (FP) PO PRN ×2 (11:55→21:29)
[2022-11-21] MEDS: METHOCARBAMOL 500 MG TABLET PO PRN ×2 (11:55→22:20)
[2022-11-21] MEDS: LIDOCAINE 5% TOPICAL PATCH TP SCH (13:15)
[2022-11-21] MEDS ORDERED: QUEtiapine FUMARATE 50 MG TABLET PO ONE (17:14)
[2022-11-21] MEDS: ACETAMINOPHEN 325 MG TABLET (FP) PO PRN (17:17)
[2022-11-21] MEDS ORDERED: QUEtiapine FUMARATE 50 MG TABLET PO SCH (22:00)
[2022-11-21] MEDS: THIAMINE HCL 100 MG TABLET (FP) PO SCH (22:14)
[2022-11-21] MEDS: DIVALPROEX SODIUM 250 MG TABLET E.C. PO SCH (22:14)
[2022-11-21] MEDS: MELATONIN 5 MG TABLETS PO SCH (22:14)
[2022-11-21] MEDS: QUEtiapine FUMARATE 100 MG TABLET (FP) PO SCH (22:14)
[2022-11-21] MEDS: LIDOCAINE PATCH REMOVAL MC SCH (22:14)
[2022-11-22] MEDS: diazePAM 5 MG TABLET PO SCH ×4 (06:00→22:11)
[2022-11-22] MEDS: PRENATAL VITAMINS W/ FOLIC ACID TABLET (FP) PO SCH (10:07)
[2022-11-22] MEDS: NICOTINE 14 MG/24 HOURS TOPICAL PATCH TD SCH (10:07)
[2022-11-22] MEDS: LIDOCAINE 5% TOPICAL PATCH TP SCH (10:07)
[2022-11-22] MEDS: DIVALPROEX SODIUM 250 MG TABLET E.C. PO SCH ×2 (10:07→22:10)
[2022-11-22] MEDS: QUEtiapine FUMARATE 100 MG TABLET (FP) PO SCH ×2 (10:08→22:11)
[2022-11-22] MEDS: METHOCARBAMOL 500 MG TABLET PO PRN ×2 (10:11→22:11)
[2022-11-22] MEDS: NICOTINE POLACRILEX 2 MG GUM BUC PRN ×2 (17:24→22:12)
[2022-11-22] MEDS: ACETAMINOPHEN 325 MG TABLET (FP) PO PRN (17:24)
[2022-11-22] MEDS: MAG HYDROX/AL HYDROX/SIMETH 30 ML UNIT-DOSE CUP PO PRN (17:26)
[2022-11-22] MEDS: hydrOXYzine PAMOATE 25 MG CAPSULE (FP) PO PRN (18:33)
[2022-11-22] MEDS: IBUPROFEN 600 MG TABLET (FP) PO PRN (18:34)
[2022-11-22] MEDS: THIAMINE HCL 100 MG TABLET (FP) PO SCH (22:10)
[2022-11-22] MEDS: LIDOCAINE PATCH REMOVAL MC SCH (22:12)
[2022-11-22] MEDS: MELATONIN 5 MG TABLETS PO SCH (22:12)
[2022-11-23] MEDS: MAG HYDROX/AL HYDROX/SIMETH 30 ML UNIT-DOSE CUP PO PRN ×2 (00:52→18:45)
[2022-11-23] MEDS: diazePAM 5 MG TABLET PO SCH ×3 (05:18→22:07)
[2022-11-23] MEDS: DIVALPROEX SODIUM 250 MG TABLET E.C. PO SCH ×2 (10:12→22:07)
[2022-11-23] MEDS: diazePAM 5 MG TABLET PO PRN ×2 (10:12→18:45)
[2022-11-23] MEDS: LIDOCAINE 5% TOPICAL PATCH TP SCH (10:13)
[2022-11-23] MEDS: PRENATAL VITAMINS W/ FOLIC ACID TABLET (FP) PO SCH (10:13)
[2022-11-23] MEDS: NICOTINE 14 MG/24 HOURS TOPICAL PATCH TD SCH (10:14)
[2022-11-23] MEDS: METHOCARBAMOL 500 MG TABLET PO PRN ×2 (10:14→22:10)
[2022-11-23] MEDS ORDERED: QUEtiapine FUMARATE 100 MG TABLET (FP) PO SCH (13:45)
[2022-11-23] MEDS: hydrOXYzine PAMOATE 25 MG CAPSULE (FP) PO PRN (15:23)
[2022-11-23] MEDS: IBUPROFEN 600 MG TABLET (FP) PO PRN (15:23)
[2022-11-23] MEDS ORDERED: PANTOPRAZOLE 20 MG TABLET PO ONE (19:55)
[2022-11-23] MEDS: THIAMINE HCL 100 MG TABLET (FP) PO SCH (22:07)
[2022-11-23] MEDS: LIDOCAINE PATCH REMOVAL MC SCH (22:07)
[2022-11-23] MEDS: QUEtiapine FUMARATE 100 MG TABLET (FP) PO SCH (22:07)
[2022-11-23] MEDS: MELATONIN 5 MG TABLETS PO SCH (22:07)
[2022-11-23] MEDS: ACETAMINOPHEN 325 MG TABLET (FP) PO PRN (22:08)
[2022-11-23] MEDS: NICOTINE POLACRILEX 2 MG GUM BUC PRN (22:13)
[2022-11-24] MEDS: MAG HYDROX/AL HYDROX/SIMETH 30 ML UNIT-DOSE CUP PO PRN (02:06)
[2022-11-24] MEDS ORDERED: diazePAM 5 MG TABLET PO SCH (06:00)
[2022-11-24 08:54] VITALS: BP 103/62; PULSE 58; RESP 16; TEMP 97
[2022-11-24] MEDS ORDERED: QUEtiapine FUMARATE 200 MG TABLET PO SCH (10:00)
[2022-11-24] MEDS: DIVALPROEX SODIUM 250 MG TABLET E.C. PO SCH (10:11)
[2022-11-24] MEDS: IBUPROFEN 600 MG TABLET (FP) PO PRN (10:11)
[2022-11-24] MEDS: PRENATAL VITAMINS W/ FOLIC ACID TABLET (FP) PO SCH (10:11)
[2022-11-24] MEDS: NICOTINE 14 MG/24 HOURS TOPICAL PATCH TD SCH (10:12)
[2022-11-24] MEDS: METHOCARBAMOL 500 MG TABLET PO PRN (10:12)
[2022-11-24] MEDS: LIDOCAINE 5% TOPICAL PATCH TP SCH (10:12)
[2022-11-25] MEDS ORDERED: diazePAM 5 MG TABLET PO ONE (06:00)
== END 2022-11-24 12:23 | disposition other institution (70) | DRG 774 ==
LOC: YASAS 21:50 → Y3N 23:02
PROVIDERS: ADMIT Allergy & Immunology; ATTEND Surgery
PROC: HZ2ZZZZ Detoxification Services for Substance Abuse Treatment (ICD-10-PCS; principal; 2022-11-20)
DX: F10.230 Alcohol dependence with withdrawal, uncomplicated (principal); F14.20 Cocaine dependence, uncomplicated; F12.20 Cannabis dependence, uncomplicated; F17.210 Nicotine dependence, cigarettes, uncomplicated; F19.24 Other psychoactive substance dependence with psychoactive substance-induced mood disorder; F31.9 Bipolar disorder, unspecified; K21.9 Gastro-esophageal reflux disease without esophagitis; M54.50 Low back pain, unspecified; G89.29 Other chronic pain; Z91.011 Allergy to milk products; Z91.041 Radiographic dye allergy status
CPT/HCPCS: 36415; 80053; 80164; 81025; 85027; 86780; 87635

== ENCOUNTER 2022-11-24 12:29 | Inpatient (IN) | payer OTHER ==
[2022-11-24] MEDS ORDERED: LOPERAMIDE HCL 2 MG CAPSULE PO PRN (12:44)
[2022-11-24] MEDS ORDERED: AMMONIUM LACTATE 12% LOTION 225 GM BOTTLE TP PRN (12:44)
[2022-11-24] MEDS ORDERED: COLLOIDAL OATMEAL 1 BAR EACH TP PRN (12:44)
[2022-11-24] MEDS ORDERED: IBUPROFEN 400 MG TABLET (FP) PO PRN (12:44)
[2022-11-24] MEDS ORDERED: POLYETHYLENE GLYCOL (HEALTHYLAX) 3350 17 GM PACKET PO PRN (12:44)
[2022-11-24] MEDS ORDERED: BENZONATATE 200 MG CAPSULE PO PRN (12:44)
[2022-11-24] MEDS ORDERED: MAG HYDROX/AL HYDROX/SIMETH 30 ML UNIT-DOSE CUP PO PRN (12:44)
[2022-11-24] MEDS ORDERED: BENZOCAINE/MENTHOL (CHLORASEPTIC ) LOZENGE MM PRN (12:44)
[2022-11-24] MEDS ORDERED: NALOXONE HCL (KLOXXADO) 8 MG SPRAY NS PRN (12:44)
[2022-11-24] MEDS ORDERED: BACLOFEN 10 MG TABLET (FP) PO PRN (12:44)
[2022-11-24] MEDS ORDERED: MAGNESIUM HYDROX 2400MG/30ML ORAL SUSPENSION 30 ML CUP PO PRN (12:44)
[2022-11-24] MEDS ORDERED: NALOXONE HCL 0.4 MG/ML VIAL IVPUSH PRN (12:44)
[2022-11-24] MEDS ORDERED: NICOTINE 10 MG CARTRIDGE (INHALER) IH PRN (12:44)
[2022-11-24] MEDS ORDERED: guaiFENesin 600 MG TABLET.ER (FP) PO PRN (12:44)
[2022-11-24 13:04] VITALS: RESP 18
[2022-11-24] MEDS: ALBUTEROL SO4 HFA INHALER IH SCH ×3 (14:36→21:10)
[2022-11-24] MEDS: PRENATAL VITAMINS W/ FOLIC ACID TABLET (FP) PO SCH (14:36)
[2022-11-24] MEDS: hydrOXYzine PAMOATE 25 MG CAPSULE (FP) PO PRN ×2 (15:25→21:12)
[2022-11-24] MEDS: CYCLOBENZAPRINE HCL 10 MG TABLET (FP) PO PRN ×2 (15:25→18:31)
[2022-11-24] MEDS: ACETAMINOPHEN 325 MG TABLET (FP) PO PRN (15:25)
[2022-11-24] MEDS: NICOTINE POLACRILEX 2 MG GUM BUC PRN (18:01)
[2022-11-24] MEDS: QUEtiapine FUMARATE 200 MG TABLET PO SCH (21:11)
[2022-11-24] MEDS: MELATONIN 5 MG TABLETS PO SCH (21:11)
[2022-11-24] MEDS: THIAMINE HCL 100 MG TABLET (FP) PO SCH (21:11)
[2022-11-25] MEDS: CYCLOBENZAPRINE HCL 10 MG TABLET (FP) PO PRN ×2 (01:34→21:26)
[2022-11-25] MEDS: ACETAMINOPHEN 325 MG TABLET (FP) PO PRN ×2 (01:35→21:28)
[2022-11-25] MEDS: IBUPROFEN 600 MG TABLET (FP) PO PRN ×3 (04:24→16:41)
[2022-11-25] MEDS: hydrOXYzine PAMOATE 25 MG CAPSULE (FP) PO PRN ×3 (04:26→21:30)
[2022-11-25] MEDS: ALBUTEROL SO4 HFA INHALER IH SCH ×6 (06:42→21:27)
[2022-11-25] MEDS: PRENATAL VITAMINS W/ FOLIC ACID TABLET (FP) PO SCH (10:20)
[2022-11-25] MEDS: AMOXICILLIN 500 MG CAPSULE (FP) PO SCH ×2 (10:20→21:26)
[2022-11-25] MEDS: QUEtiapine FUMARATE 200 MG TABLET PO SCH ×2 (10:20→21:26)
[2022-11-25] MEDS: NICOTINE 21 MG/24 HOURS TOPICAL PATCH TD PRN (12:05)
[2022-11-25 12:50] LABS: HIV INTERPRETATION NEGATIVE (NEGATIVE)
[2022-11-25] MEDS: NICOTINE POLACRILEX 2 MG GUM BUC PRN (18:21)
[2022-11-25] MEDS: MELATONIN 5 MG TABLETS PO SCH (21:26)
[2022-11-25] MEDS: THIAMINE HCL 100 MG TABLET (FP) PO SCH (21:26)
[2022-11-26] MEDS: IBUPROFEN 600 MG TABLET (FP) PO PRN ×3 (01:40→21:23)
[2022-11-26] MEDS: ALBUTEROL SO4 HFA INHALER IH SCH ×4 (01:42→12:57)
[2022-11-26] MEDS ORDERED: hydrOXYzine PAMOATE 25 MG CAPSULE (FP) PO ONE (02:58)
[2022-11-26] MEDS: ACETAMINOPHEN 325 MG TABLET (FP) PO PRN ×3 (02:59→19:25)
[2022-11-26] MEDS: hydrOXYzine PAMOATE 25 MG CAPSULE (FP) PO PRN ×3 (03:01→21:23)
[2022-11-26] MEDS: BENZOCAINE 20 % GEL TUBE MM PRN ×2 (03:53→10:09)
[2022-11-26] MEDS: CYCLOBENZAPRINE HCL 10 MG TABLET (FP) PO PRN ×2 (06:49→21:23)
[2022-11-26] MEDS: PRENATAL VITAMINS W/ FOLIC ACID TABLET (FP) PO SCH (10:07)
[2022-11-26] MEDS: AMOXICILLIN 500 MG CAPSULE (FP) PO SCH (10:07)
[2022-11-26] MEDS: QUEtiapine FUMARATE 200 MG TABLET PO SCH ×2 (10:07→21:21)
[2022-11-26] MEDS ORDERED: ALBUTEROL SO4 HFA INHALER IH PRN (13:16)
[2022-11-26] MEDS: CHLORHEXIDINE GLUCONATE 0.12% 15ML CUP MM PRN ×2 (13:31→21:24)
[2022-11-26] MEDS: LIDOCAINE 5% TOPICAL PATCH TP SCH (13:32)
[2022-11-26] MEDS: AMOX TR/POT CLAV 875MG/125MG TABLETS (FP) PO SCH (19:25)
[2022-11-26] MEDS: THIAMINE HCL 100 MG TABLET (FP) PO SCH (21:21)
[2022-11-26] MEDS: MELATONIN 5 MG TABLETS PO SCH (21:21)
[2022-11-26] MEDS: LIDOCAINE PATCH REMOVAL MC SCH (21:25)
[2022-11-27] MEDS: ACETAMINOPHEN 325 MG TABLET (FP) PO PRN ×3 (01:45→21:11)
[2022-11-27] MEDS: AMOX TR/POT CLAV 875MG/125MG TABLETS (FP) PO SCH ×2 (07:09→17:16)
[2022-11-27] MEDS: PRENATAL VITAMINS W/ FOLIC ACID TABLET (FP) PO SCH (10:27)
[2022-11-27] MEDS: LIDOCAINE 5% TOPICAL PATCH TP SCH (10:27)
[2022-11-27] MEDS: QUEtiapine FUMARATE 200 MG TABLET PO SCH ×2 (10:28→21:10)
[2022-11-27] MEDS: CYCLOBENZAPRINE HCL 10 MG TABLET (FP) PO PRN ×2 (10:28→19:21)
[2022-11-27] MEDS: hydrOXYzine PAMOATE 25 MG CAPSULE (FP) PO PRN ×2 (10:29→19:21)
[2022-11-27] MEDS: BENZOCAINE 20 % GEL TUBE MM PRN (10:31)
[2022-11-27] MEDS: NICOTINE 21 MG/24 HOURS TOPICAL PATCH TD PRN (10:33)
[2022-11-27] MEDS: CHLORHEXIDINE GLUCONATE 0.12% 15ML CUP MM PRN (10:38)
[2022-11-27] MEDS: IBUPROFEN 600 MG TABLET (FP) PO PRN (14:55)
[2022-11-27] MEDS: LIDOCAINE PATCH REMOVAL MC SCH (21:09)
[2022-11-27] MEDS: MELATONIN 5 MG TABLETS PO SCH (21:09)
[2022-11-27] MEDS: THIAMINE HCL 100 MG TABLET (FP) PO SCH (21:10)
[2022-11-28] MEDS: AMOX TR/POT CLAV 875MG/125MG TABLETS (FP) PO SCH ×2 (07:02→16:57)
[2022-11-28] MEDS: PRENATAL VITAMINS W/ FOLIC ACID TABLET (FP) PO SCH (09:49)
[2022-11-28] MEDS: LIDOCAINE 5% TOPICAL PATCH TP SCH (09:49)
[2022-11-28] MEDS: hydrOXYzine PAMOATE 25 MG CAPSULE (FP) PO PRN ×2 (09:51→16:05)
[2022-11-28] MEDS: QUEtiapine FUMARATE 200 MG TABLET PO SCH ×2 (09:51→21:27)
[2022-11-28] MEDS: CYCLOBENZAPRINE HCL 10 MG TABLET (FP) PO PRN ×2 (09:51→21:27)
[2022-11-28] MEDS: ACETAMINOPHEN 325 MG TABLET (FP) PO PRN ×2 (09:52→15:35)
[2022-11-28] MEDS: NICOTINE 21 MG/24 HOURS TOPICAL PATCH TD PRN (09:52)
[2022-11-28] MEDS: CHLORHEXIDINE GLUCONATE 0.12% 15ML CUP MM PRN (15:36)
[2022-11-28] MEDS: DIVALPROEX SODIUM 250 MG TABLET E.C. PO SCH (21:27)
[2022-11-28] MEDS: THIAMINE HCL 100 MG TABLET (FP) PO SCH (21:27)
[2022-11-28] MEDS: LIDOCAINE PATCH REMOVAL MC SCH (21:28)
[2022-11-28] MEDS ORDERED: MELATONIN 5 MG TABLETS PO SCH (22:00)
[2022-11-29] MEDS: AMOX TR/POT CLAV 875MG/125MG TABLETS (FP) PO SCH ×2 (07:09→16:38)
[2022-11-29 07:21] VITALS: BP 119/68; PULSE 87; TEMP 96.6
[2022-11-29] MEDS: PRENATAL VITAMINS W/ FOLIC ACID TABLET (FP) PO SCH (10:13)
[2022-11-29] MEDS: DIVALPROEX SODIUM 250 MG TABLET E.C. PO SCH (10:13)
[2022-11-29] MEDS: LIDOCAINE 5% TOPICAL PATCH TP SCH (10:13)
[2022-11-29] MEDS: QUEtiapine FUMARATE 200 MG TABLET PO SCH (10:14)
[2022-11-29] MEDS: NICOTINE 21 MG/24 HOURS TOPICAL PATCH TD PRN (10:15)
[2022-11-29] MEDS: ACETAMINOPHEN 325 MG TABLET (FP) PO PRN (14:53)
[2022-11-29] MEDS ORDERED: IBUPROFEN 600 MG TABLET (FP) PO PRN (15:45)
[2022-11-29] MEDS ORDERED: GABAPENTIN 400 MG CAPSULE PO SCH (16:00)
[2022-11-29] MEDS: hydrOXYzine PAMOATE 25 MG CAPSULE (FP) PO PRN (16:38)
[2022-11-29] MEDS: CYCLOBENZAPRINE HCL 10 MG TABLET (FP) PO PRN (16:38)
[2022-11-29] MEDS ORDERED: SUVOREXANT 10 MG TABLET PO PRN (22:00)
== END 2022-11-29 20:29 | disposition left against medical advice (07) | DRG 770 ==
LOC: YASAS 12:29 → Y5N 12:38
PROVIDERS: ADMIT Allergy & Immunology; ATTEND Psychiatry & Neurology Pain Medicine
PROC: HZ42ZZZ Group Counseling for Substance Abuse Treatment, Cognitive-Behavioral (ICD-10-PCS; principal; 2022-11-24)
DX: F10.20 Alcohol dependence, uncomplicated (principal); F14.20 Cocaine dependence, uncomplicated; F12.20 Cannabis dependence, uncomplicated; F17.210 Nicotine dependence, cigarettes, uncomplicated; F31.9 Bipolar disorder, unspecified; F41.9 Anxiety disorder, unspecified; M54.40 Lumbago with sciatica, unspecified side; G89.29 Other chronic pain; K08.89 Other specified disorders of teeth and supporting structures; Z91.011 Allergy to milk products; Z91.041 Radiographic dye allergy status
CPT/HCPCS: 36415; 86803; 87389

== ENCOUNTER 2022-11-26 14:25 | Emergency (ER) | payer OTHER ==
[2022-11-26 14:35] VITALS: BP 139/88; PULSE 111; RESP 18; TEMP 97.2; BMI 31.6
[2022-11-26] MEDS ORDERED: ACETAMINOPHEN 500 MG TABLET (FP) PO ONE (15:22)
[2022-11-26] MEDS ORDERED: KETOROLAC TROMETHAMINE 30 MG/1 ML VIAL IM ONE (15:23)
[2022-11-26] MEDS ORDERED: KETOROLAC TROMETHAMINE 30 MG/1 ML VIAL ONE (15:30)
== END 2022-11-26 18:04 | disposition home or self-care (01) ==
LOC: JERFT 14:25
PROC: 3E0233Z Introduction of Anti-inflammatory into Muscle, Percutaneous Approach (ICD-10-PCS; principal; 2022-11-26)
DX: K08.89 Other specified disorders of teeth and supporting structures (principal)
CPT/HCPCS: 84703; 99284-25